=== PATIENT | female | born 1960 | race African-American/Black ===

== ENCOUNTER 2017-08-01 12:14 | Inpatient (IN) | payer MEDICAID ==
[~2017-08-01] VITALS: Ht 165.1 cm; Wt 63.7 kg
[~2017-08-01 12:14] MED LIST: AMLO10TA80 PO; ASPI-1159 PO; CHOL100046 PO; FURO20TA4 PO; HYDR-523 PO; LISI-604 PO; METO50TA5 PO; ROSU40TA PO; fish oil PO; plavix PO
[2017-08-01] MEDS ORDERED: POTA10TA15 PO (12:23)
[2017-08-01] MEDS ORDERED: CLOP75TA33 PO (12:23)
[2017-08-01] MEDS ORDERED: METF10002 PO (12:23)
[2017-08-01] MEDS ORDERED: ASPIRIN 81MG TABLET PO ONE (13:00)
[2017-08-01] MEDS ORDERED: NITROGLYCERIN 0.4MG TABLET SL SL PRN (13:00)
[2017-08-01 13:14] LABS: BASOPHILS % 0.3 % (0.0-2.0); EOSINOPHILS % 0.6 % (0.0-5.0); HEMATOCRIT. 32.3 % (36.0-48.0); HEMOGLOBIN. 10.9 g/dL (12.0-16.0); LYMPHOCYTES % 21.3 % (20.0-50.0); MEAN CORPUSCULAR VOLUME 77.4 fL (81.0-99.0); MEAN PLATELET VOLUME 7.5 fl (7.4-10.4); MONOCYTES % 5.9 % (2.0-8.0); NEUTROPHILS % 71.9 % (40.0-76.0); PLATELET 282 x1000/uL (130-400); RED BLOOD CELL COUNT 4.17 mill/uL (4.2-5.4); RED CELL DISTRIBUTION WIDTH 14.7 % (11.6-14.6)
[2017-08-01 13:21] LABS: INR 0.9; PROTHROMBIN TIME 9.8 sec (9.4-11.6)
[2017-08-01 13:22] LABS: CHLORIDE 106 mEq/L (98-107)
[2017-08-01 13:30] LABS: CARBON DIOXIDE 21 mEq/L (21-32); TROPONIN I < 0.02 ng/mL (0.00-0.04)
[2017-08-01 15:36] LABS: CLARITY URINE CLEAR (CLEAR); COLOR URINE YELLOW (YELLOW); GLUCOSE URINE NEGATIVE (NEGATIVE); KETONES URINE NEGATIVE (NEGATIVE); LEUKOCYTE ESTERASE URINE 1+ (NEGATIVE); NITRITE URINE NEGATIVE (NEGATIVE); OCCULT BLOOD URINE NEGATIVE (NEGATIVE); PROTEIN URINE NEGATIVE (NEGATIVE); SPECIFIC GRAVITY URINE 1.009 (1.005-1.030); UROBILINOGEN URINE 0.2 E.U./dL (0.2-1.0)
[2017-08-01] MEDS ORDERED: MORPHINE SULFATE 4 MG/ML CPJ (NOT FOR IM USE) IV ONE (15:45)
[2017-08-01] MEDS ORDERED: SODIUM CHLORIDE 0.9% 1,000 ML IV SCH ×2 (16:53→22:53)
[2017-08-01] MEDS ORDERED: SODIUM CHLORIDE 0.9% 1,000 ML IV ONE (17:00)
[2017-08-01 20:45] VITALS: BP 136/68
[2017-08-01 21:37] VITALS: BP 136/68
[2017-08-01] MEDS ORDERED: MORPHINE SULFATE 2 MG/ML CPJ (NOT FOR IM USE) IV PRN (23:00)
[2017-08-01] MEDS ORDERED: IPRATROPIUM/ALBUTEROL 0.5-3(2.5)MG/3ML NEB INH PRN (23:00)
[2017-08-01] MEDS ORDERED: MAGNESIUM/ALUMINUM HYDROXIDE/SIMETHICONE 30ML UDC PO PRN (23:00)
[2017-08-01] MEDS ORDERED: ONDANSETRON HCL 4MG/2ML VIAL IV PRN (23:00)
[2017-08-01] MEDS ORDERED: CLONIDINE 0.1MG TABLET PO PRN (23:00)
[2017-08-02] VITALS: BP 102/62
[2017-08-02] MEDS ORDERED: DEXTROSE 50% WATER 50ML SYRINGE IV PRN (00:15)
[2017-08-02] MEDS: SODIUM CHLORIDE 0.9% 1,000 ML IV SCH ×2 (01:04→14:22)
[2017-08-02 04:00] VITALS: BP 122/64
[2017-08-02 06:22] LABS: BASOPHILS % 0.3 % (0.0-2.0); EOSINOPHILS % 0.5 % (0.0-5.0); HEMATOCRIT. 26.8 % (36.0-48.0); HEMOGLOBIN. 9.2 g/dL (12.0-16.0); LYMPHOCYTES % 36.3 % (20.0-50.0); MEAN CORPUSCULAR HEMOGLOBIN 26.5 pg (28.0-32.0); MEAN CORPUSCULAR VOLUME 77.2 fL (81.0-99.0); MEAN PLATELET VOLUME 7.8 fl (7.4-10.4); MONOCYTES % 9.4 % (2.0-8.0); NEUTROPHILS % 53.5 % (40.0-76.0); PLATELET 235 x1000/uL (130-400); RED BLOOD CELL COUNT 3.47 mill/uL (4.2-5.4); RED CELL DISTRIBUTION WIDTH 14.8 % (11.6-14.6)
[2017-08-02] MEDS: METFORMIN HCL 500MG TABLET PO SCH ×2 (06:45→17:41)
[2017-08-02] MEDS: INSULIN LISPRO 100 UNITS/ML SUBCUT SCH ×4 (07:08→22:28)
[2017-08-02] MEDS: BLOOD SUGAR DIAGNOSTIC STRIP TEST SCH ×4 (07:08→21:59)
[2017-08-02 07:31] LABS: CARBON DIOXIDE 20 mEq/L (21-32); CHLORIDE 111 mEq/L (98-107); CREATINE KINASE 81 IU/L (26-192); CREATINE KINASE MB FRACTION 0.8 ng/mL (0.5-3.6); HDL CHOLESTEROL 44 mg/dL (40-59); LDL CHOLESTEROL 38 mg/dL (5-100); TROPONIN I < 0.02 ng/mL (0.00-0.04)
[2017-08-02 08:00] VITALS: BP 115/58
[2017-08-02] MEDS ORDERED: CHOLECALCIFEROL 1000 UNIT PO SCH (09:00)
[2017-08-02] MEDS ORDERED: MEDICATION NOT ON FORMULARY EA (Potassium Chloride 10 MEQ) PO SCH (09:00)
[2017-08-02] MEDS ORDERED: FISH OIL 1000 MG PO SCH (09:00)
[2017-08-02 09:40] LABS: *AMPHETAMINES SCREEN URINE NEGATIVE (NEGATIVE); *BARBITURATES SCREEN URINE NEGATIVE (NEGATIVE); *BENZODIAZEPINES SCREEN URINE NEGATIVE (NEGATIVE); *COCAINE SCREEN URINE NEGATIVE (NEGATIVE); CANNABINOID URINE SCREEN NEGATIVE (NEGATIVE); METHADONE URINE SCREEN NEGATIVE (NEGATIVE); OPIATES URINE SCREEN NEGATIVE (NEGATIVE); PHENCYCLIDINE URINE SCREEN NEGATIVE (NEGATIVE)
[2017-08-02] MEDS: POTASSIUM CHLORIDE 10MEQ TABLET SR PO SCH (09:54)
[2017-08-02] MEDS: CHOLECALCIFEROL (D3) 1000 UNIT TABLET PO SCH (09:54)
[2017-08-02] MEDS: METOPROLOL TARTRATE 50MG TABLET PO SCH ×2 (09:54→22:22)
[2017-08-02] MEDS: FUROSEMIDE 20MG TABLET PO SCH ×2 (09:54→22:22)
[2017-08-02] MEDS: CLOPIDOGREL 75MG TABLET PO SCH (09:55)
[2017-08-02] MEDS: FISH OIL/OMEGA-3 FATTY ACIDS 1000MG CAPSULE PO SCH (09:55)
[2017-08-02] MEDS: LISINOPRIL 20MG TABLET PO SCH (09:55)
[2017-08-02] MEDS: ASPIRIN 81MG EC TABLET PO SCH (09:55)
[2017-08-02] MEDS: ENOXAPARIN 40MG/0.4ML SYR SUBCUT SCH (09:56)
[2017-08-02] MEDS: AMLODIPINE 10MG TABLET PO SCH (09:57)
[2017-08-02 12:00] VITALS: BP 116/54
[2017-08-02 12:49] LABS: CLARITY URINE CLOUDY (CLEAR); COLOR URINE YELLOW (YELLOW); GLUCOSE URINE NEGATIVE (NEGATIVE); KETONES URINE TRACE (NEGATIVE); LEUKOCYTE ESTERASE URINE 2+ (NEGATIVE); NITRITE URINE NEGATIVE (NEGATIVE); OCCULT BLOOD URINE NEGATIVE (NEGATIVE); PH URINE 5.5 (4.5-8.0); PROTEIN URINE TRACE (NEGATIVE); SPECIFIC GRAVITY URINE 1.023 (1.005-1.030); UROBILINOGEN URINE 0.2 E.U./dL (0.2-1.0)
[2017-08-02 16:00] VITALS: BP 109/59
[2017-08-02 20:00] VITALS: BP 140/71
[2017-08-02 20:27] LABS: CREATINE KINASE 122 IU/L (26-192); CREATINE KINASE MB FRACTION 1.2 ng/mL (0.5-3.6); TROPONIN I < 0.02 ng/mL (0.00-0.04)
[2017-08-02] MEDS ORDERED: MEDICATION NOT ON FORMULARY EA (Rosuvastatin Calcium (Crestor) 40 MG) PO SCH (21:00)
[2017-08-02] MEDS ORDERED: ATORVASTATIN CALCIUM 40MG TABLET PO SCH (21:00)
[2017-08-03] VITALS: BP 141/71
[2017-08-03] MEDS: HYDROCODONE/ACETAMINOPHEN 5/325MG TABLET PO PRN ×2 (00:44→08:57)
[2017-08-03 04:00] VITALS: BP 97/60
[2017-08-03] MEDS: INSULIN LISPRO 100 UNITS/ML SUBCUT SCH (06:31)
[2017-08-03] MEDS: BLOOD SUGAR DIAGNOSTIC STRIP TEST SCH (06:31)
[2017-08-03 06:53] LABS: BASOPHILS % 0.5 % (0.0-2.0); EOSINOPHILS % 1.8 % (0.0-5.0); HEMATOCRIT. 26.6 % (36.0-48.0); MEAN CORPUSCULAR HEMOGLOBIN 26.1 pg (28.0-32.0); MEAN CORPUSCULAR VOLUME 76.7 fL (81.0-99.0); MEAN PLATELET VOLUME 7.8 fl (7.4-10.4); MONOCYTES % 10.9 % (2.0-8.0); NEUTROPHILS % 48.8 % (40.0-76.0); PLATELET 250 x1000/uL (130-400); RED BLOOD CELL COUNT 3.47 mill/uL (4.2-5.4); RED CELL DISTRIBUTION WIDTH 14.5 % (11.6-14.6)
[2017-08-03] MEDS: SODIUM CHLORIDE 0.9% 1,000 ML IV SCH (06:57)
[2017-08-03 07:42] LABS: CHLORIDE 111 mEq/L (98-107)
[2017-08-03 07:54] LABS: AMYLASE 154 IU/L (25-115); CARBON DIOXIDE 24 mEq/L (21-32); TOTAL IRON BINDING CAPACITY 311 ug/dL (250-450)
[2017-08-03 08:00] VITALS: BP 113/65
[2017-08-03] MEDS: METFORMIN HCL 500MG TABLET PO SCH (08:26)
[2017-08-03] MEDS: AMLODIPINE 10MG TABLET PO SCH (08:26)
[2017-08-03] MEDS: ASPIRIN 81MG EC TABLET PO SCH (08:26)
[2017-08-03] MEDS: CLOPIDOGREL 75MG TABLET PO SCH (08:26)
[2017-08-03] MEDS: LISINOPRIL 20MG TABLET PO SCH (08:27)
[2017-08-03] MEDS: POTASSIUM CHLORIDE 10MEQ TABLET SR PO SCH (08:27)
[2017-08-03] MEDS: CHOLECALCIFEROL (D3) 1000 UNIT TABLET PO SCH (08:27)
[2017-08-03] MEDS: FUROSEMIDE 20MG TABLET PO SCH (08:27)
[2017-08-03] MEDS: FISH OIL/OMEGA-3 FATTY ACIDS 1000MG CAPSULE PO SCH (08:27)
[2017-08-03] MEDS: METOPROLOL TARTRATE 50MG TABLET PO SCH (08:27)
[2017-08-03] MEDS: ENOXAPARIN 40MG/0.4ML SYR SUBCUT SCH (08:28)
[2017-08-03 11:56] VITALS: BP 113/65
== END 2017-08-03 12:45 | disposition home or self-care (01) | DRG 282 ==
LOC: ER 14:20 → 5WST 16:55 → ENRESERV 18:33
PROVIDERS: ADMIT Internal Medicine; ATTEND Internal Medicine
DX: K85.90 Acute pancreatitis without necrosis or infection, unspecified (principal); I10 Essential (primary) hypertension; D50.9 Iron deficiency anemia, unspecified; E11.9 Type 2 diabetes mellitus without complications; E03.9 Hypothyroidism, unspecified; E78.00 Pure hypercholesterolemia, unspecified; R07.89 Other chest pain; E78.5 Hyperlipidemia, unspecified; I25.10 Atherosclerotic heart disease of native coronary artery without angina pectoris; K21.9 Gastro-esophageal reflux disease without esophagitis; Z95.1 Presence of aortocoronary bypass graft; Z95.5 Presence of coronary angioplasty implant and graft; Z79.82 Long term (current) use of aspirin; I25.2 Old myocardial infarction; Z79.899 Other long term (current) drug therapy
CPT/HCPCS: 36415; 71010; 74176; 76705; 80048; 80053; 80061; 80305; 81001; 82150; 82550; 82553; 82728; 82962; 83540; 83550; 83690; 83880; 84443; 84484; 85025; 85610; 93005; 93970; 96361; 96374; 99285; J1650; J1815; J2270; J7030

== ENCOUNTER 2018-11-09 11:37 | Inpatient (IN) | payer MEDICAID ==
[2018-11-09] VITALS (10 sets, daily range): BP systolic 123–145; BP diastolic 63–69
[~2018-11-09] VITALS: Ht 162.6 cm; Wt 70.4 kg
[~2018-11-09 11:37] MED LIST changes: +CLOP75TA33 PO; +METF-416 PO; +METO-539 PO; -METO50TA5 PO; +POTA10TA15 PO; -ROSU40TA PO; -plavix PO
[2018-11-09] MEDS ORDERED: IODIXANOL 320MG/ML 100 ML BOTTLE IV ONE (13:24)
[2018-11-09] MEDS ORDERED: LIDOCAINE HCL 1% 20ML VIAL (Pyxis) INJ ONE (13:24)
[2018-11-09] MEDS ORDERED: FENTANYL CITRATE/PF 50MCG/ML 2ML VIAL ONE (13:25)
[2018-11-09] MEDS ORDERED: MIDAZOLAM HCL 2 MG/2 ML VIAL ONE (13:25)
[2018-11-09] MEDS ORDERED: VYT1040 PO (13:54)
[2018-11-09] MEDS ORDERED: GABA-531 PO (13:54)
[2018-11-09] MEDS ORDERED: HYDR100T26 PO (13:54)
[2018-11-09] MEDS ORDERED: BIOT10TA2 PO (13:54)
[2018-11-09] MEDS ORDERED: IOHEXOL-300 100 ML BOTTLE ONE (14:12)
[2018-11-09] MEDS ORDERED: ACETAMINOPHEN 325MG TABLET PO PRN (15:00)
[2018-11-09] MEDS ORDERED: ATROPINE SULFATE 1MG/10ML SYR IV PRN (15:00)
[2018-11-09] MEDS ORDERED: ONDANSETRON HCL 4MG/2ML INJ IV PRN (15:00)
[2018-11-09] MEDS ORDERED: HEPARIN SODIUM 1,000 UNIT/1ML VIAL IV ONE (15:30)
[2018-11-09] MEDS ORDERED: NICARDIPINE 100MCG/ML 10ML VIAL (CATH LAB) IV ONE (15:32)
[2018-11-09] MEDS ORDERED: NITROGLYCERIN 50MCG/ML 10ML VIAL (CATH LAB) IV ONE (15:32)
[2018-11-09] MEDS ORDERED: DEXTROSE 50% WATER 50ML SYRINGE IV PRN (22:15)
[2018-11-09] MEDS: BLOOD SUGAR DIAGNOSTIC STRIP TEST SCH (23:28)
[2018-11-09] MEDS: POTASSIUM CHLORIDE 20MEQ TABLET SR PO SCH (23:30)
[2018-11-09] MEDS: FUROSEMIDE 20MG TABLET PO SCH (23:30)
[2018-11-09] MEDS: HYDRALAZINE HCL 50MG TABLET PO SCH (23:42)
[2018-11-09] MEDS: METOPROLOL TARTRATE 50MG TABLET PO SCH (23:43)
[2018-11-09] MEDS: INSULIN LISPRO 100 UNITS/ML SUBCUT SCH (23:48)
[2018-11-10] VITALS (9 sets, daily range): BP systolic 116–141; BP diastolic 61–78
[2018-11-10] MEDS: HYDRALAZINE HCL 50MG TABLET PO SCH (06:18)
[2018-11-10] MEDS: BLOOD SUGAR DIAGNOSTIC STRIP TEST SCH ×2 (06:18→12:33)
[2018-11-10 06:30] LABS: BASOPHILS % 0.5 % (0.0-2.0); EOSINOPHILS % 0.9 % (0.0-5.0); HEMATOCRIT. 29.4 % (36.0-48.0); HEMOGLOBIN. 9.8 g/dL (12.0-16.0); LYMPHOCYTES % 34.6 % (20.0-50.0); MEAN CORPUSCULAR HEMOGLOBIN 24.5 pg (28.0-32.0); MEAN CORPUSCULAR VOLUME 73.6 fL (81.0-99.0); MEAN PLATELET VOLUME 7.9 fl (7.4-10.4); MONOCYTES % 10.8 % (2.0-8.0); NEUTROPHILS % 53.2 % (40.0-76.0); PLATELET 315 x1000/uL (130-400); RED CELL DISTRIBUTION WIDTH 16.4 % (11.6-14.6)
[2018-11-10 07:12] LABS: CHLORIDE 113 mEq/L (98-107)
[2018-11-10] MEDS: INSULIN LISPRO 100 UNITS/ML SUBCUT SCH ×2 (07:20→12:45)
[2018-11-10] MEDS ORDERED: AMLODIPINE 10MG TABLET PO SCH (09:00)
[2018-11-10] MEDS ORDERED: ASPIRIN 325MG TABLET PO SCH (09:00)
[2018-11-10] MEDS ORDERED: CHOLECALCIFEROL (D3) 1000 UNIT TABLET PO SCH (09:00)
[2018-11-10] MEDS: POTASSIUM CHLORIDE 20MEQ TABLET SR PO SCH (09:27)
[2018-11-10] MEDS: FUROSEMIDE 20MG TABLET PO SCH (09:27)
[2018-11-10] MEDS: METOPROLOL TARTRATE 50MG TABLET PO SCH (09:28)
[2018-11-10] MEDS ORDERED: METFORMIN HCL 500MG TABLET PO SCH (17:20)
== END 2018-11-10 13:00 | disposition home or self-care (01) | DRG 192 ==
LOC: CCL 11:37 → 3WST 11:38
PROVIDERS: ADMIT Specialist; ATTEND Specialist
PROC: 4A023N7 Measurement of Cardiac Sampling and Pressure, Left Heart, Percutaneous Approach (ICD-10-PCS; principal; 2018-11-09)
PROC: B218YZZ Fluoroscopy of Left Internal Mammary Bypass Graft using Other Contrast (ICD-10-PCS; 2018-11-09)
PROC: B215YZZ Fluoroscopy of Left Heart using Other Contrast (ICD-10-PCS; 2018-11-09)
PROC: B212YZZ Fluoroscopy of Single Coronary Artery Bypass Graft using Other Contrast (ICD-10-PCS; 2018-11-09)
DX: T82.897A Other specified complication of cardiac prosthetic devices, implants and grafts, initial encounter (principal); I11.9 Hypertensive heart disease without heart failure; E83.51 Hypocalcemia; E87.8 Other disorders of electrolyte and fluid balance, not elsewhere classified; I25.110 Atherosclerotic heart disease of native coronary artery with unstable angina pectoris; E11.9 Type 2 diabetes mellitus without complications; E78.5 Hyperlipidemia, unspecified; Y83.1 Surgical operation with implant of artificial internal device as the cause of abnormal reaction of the patient, or of later complication, without mention of misadventure at the time of the procedure; Z87.891 Personal history of nicotine dependence; I25.2 Old myocardial infarction; Z95.1 Presence of aortocoronary bypass graft; Z95.5 Presence of coronary angioplasty implant and graft; Y92.89 Other specified places as the place of occurrence of the external cause; Z88.8 Allergy status to other drugs, medicaments and biological substances
CPT/HCPCS: 36415; 80048; 82962; 85347; 93005; 93459; C1725; C1760; C1769; C1887; C1893; J1644; J1815; J2250; J3010; J3490; Q9967; A4315

== ENCOUNTER 2025-03-13 20:26 | Emergency (ER) | payer BC, MEDICAID ==
[~2025-03-13] VITALS: Ht 165.1 cm; Wt 68.0 kg
[~2025-03-13 20:26] MED LIST changes: -ASPI-1159 PO; +ASPI-1497 PO; +BIOT10TA2 PO; +GABA-1180 PO; -HYDR-523 PO; +HYDR100T11 PO; -LISI-604 PO; +VYT1040 PO; -fish oil PO
[2025-03-13 20:36] VITALS: O2SAT 99
[2025-03-13] MEDS: LIDOCAINE HCL 1% 20ML VIAL INFIL ONE (22:00)
[2025-03-13] MEDS: MORPHINE SULFATE 4 MG/ML INJ (FOR IV/IM USE) IV ONE (22:00)
[2025-03-13] MEDS ORDERED: IBUP-2029 MT (23:09)
[2025-03-13] MEDS ORDERED: TRAM50TA3 MT (23:11)
[2025-03-13 23:35] VITALS: BP 203/69; PULSE 66; RESP 18; TEMP 36.6; O2SAT 99
== END 2025-03-13 23:36 | disposition home or self-care (01) ==
LOC: ER 20:26
DX: S52.611A Displaced fracture of right ulna styloid process, initial encounter for closed fracture (principal); S52.501A Unspecified fracture of the lower end of right radius, initial encounter for closed fracture; E11.9 Type 2 diabetes mellitus without complications; E78.00 Pure hypercholesterolemia, unspecified; I10 Essential (primary) hypertension; I25.2 Old myocardial infarction; Z95.5 Presence of coronary angioplasty implant and graft; Z95.1 Presence of aortocoronary bypass graft; Z79.899 Other long term (current) drug therapy; Z79.82 Long term (current) use of aspirin; Z79.02 Long term (current) use of antithrombotics/antiplatelets; W18.30XA Fall on same level, unspecified, initial encounter; Y93.89 Activity, other specified; Y92.89 Other specified places as the place of occurrence of the external cause; Y99.8 Other external cause status
CPT/HCPCS: 99283; 96374; 73110; 29125; J2270; A6449; A4565; J3490

== ENCOUNTER 2025-08-18 16:53 | Emergency (ER) | payer BC ==
[~2025-08-18] VITALS: Ht 165.1 cm; Wt 68.0 kg
[~2025-08-18 16:53] MED LIST changes: +IBUP-1455 MT; +TRAM50TA3 MT
[2025-08-18 16:59] VITALS: O2SAT 99
[2025-08-18] MEDS: KETOROLAC 15MG/ML VIAL IM ONE (19:53)
[2025-08-18] MEDS: LIDOCAINE 5% PATCH TOP SCH (19:56)
[2025-08-18] MEDS ORDERED: NAPR-1176 MT (20:46)
[2025-08-18] MEDS ORDERED: LIDO-53 TP (20:46)
[2025-08-18 20:53] VITALS: BP 165/65; PULSE 70; RESP 13; TEMP 36.9; O2SAT 99
== END 2025-08-18 20:58 | disposition home or self-care (01) ==
LOC: ER 16:53
DX: S20.219A Contusion of unspecified front wall of thorax, initial encounter (principal); I25.2 Old myocardial infarction; E78.00 Pure hypercholesterolemia, unspecified; E11.9 Type 2 diabetes mellitus without complications; Z95.1 Presence of aortocoronary bypass graft; Z98.890 Other specified postprocedural states; Z79.899 Other long term (current) drug therapy; Z79.82 Long term (current) use of aspirin; Z79.1 Long term (current) use of non-steroidal anti-inflammatories (NSAID); Z79.02 Long term (current) use of antithrombotics/antiplatelets; W01.0XXA Fall on same level from slipping, tripping and stumbling without subsequent striking against object, initial encounter; Y93.89 Activity, other specified; Y92.89 Other specified places as the place of occurrence of the external cause; Y99.8 Other external cause status
CPT/HCPCS: 99283; 71101; 96372; J1885